=== PATIENT | male | born 1995 | race Caucasian/White ===

== ENCOUNTER 2018-09-29 05:20 | Emergency (ER) | payer OTHER ==
[2018-09-29] MEDS ORDERED: Acetaminophen 500 MG TAB ONE (05:43)
[2018-09-29] MEDS ORDERED: Metoclopramide HCl 10 MG/2 ML VIAL ONE (05:43)
[2018-09-29] MEDS ORDERED: diphenhydrAMINE 50 MG/ML VIAL ONE (05:43)
[2018-09-29] MEDS ORDERED: methylPREDNISolone Sod Succ/PF 125 MG/2 ML VIAL ONE (06:35)
[2018-09-29] MEDS ORDERED: Ketorolac Tromethamine 30 MG/ML VIAL ONE (06:35)
== END 2018-09-29 07:12 | disposition home or self-care (01) ==
LOC: ERS 05:20
DX: R51 Headache (principal); Z79.899 Other long term (current) drug therapy
CPT/HCPCS: 96365; 96375; J1200; J1885; J2765; J2930

== ENCOUNTER 2018-10-11 07:11 | Outpatient (CLI) | payer OTHER ==
--- NOTE | 2018-10-11 08:09 | MRI ---
Brain MRI with and without contrast: 10/11/2018 COMPARISON: None HISTORY: Migraine headaches with aura TECHNIQUE: Multiplanar multisequence MR imaging of the brain obtained with and without contrast FINDINGS: The diffusion weighted imaging demonstrates no evidence for acute infarction and the axial gradient echo imaging demonstrates no evidence for intracranial hemorrhage. There is mild mucosal thickening involving the maxillary sinuses, sphenoid sinuses, ethmoid air cells , and frontal sinuses bilaterally. There are a few scattered opacified mastoid air cells bilaterally. No midline shift or mass effect. No ventricular enlargement. Postcontrast imaging demonstrates no abnormal enhancement. IMPRESSION: Unremarkable contrast enhanced brain MRI.
[2018-10-11] MEDS ORDERED: Gadobenate Dimeglumine 529 MG/1 ML (20ML VIAL) ONE (09:00)
== END 2018-10-11 07:12 | disposition home or self-care (01) ==
LOC: SCSMRI 07:11
PROVIDERS: ATTEND Family Medicine
DX: G43.109 Migraine with aura, not intractable, without status migrainosus (principal)
CPT/HCPCS: 36415; 70553; 80053; 83735; 85652; 86140; A9577